=== PATIENT | female | born 1945 | race Caucasian/White ===

== ENCOUNTER 2019-12-11 15:18 | Inpatient (IN) | payer MEDICARE ==
[2019-12-11] MEDS ORDERED: Cyclobenzaprine 10 MG TAB PO PRN (17:26)
[2019-12-11] MEDS: Ascorbic Acid 500 mg Chewable Tablet PO SCH (20:37)
[2019-12-11] MEDS: Famotidine 20 MG TAB PO SCH (20:37)
[2019-12-11] MEDS: Carvedilol 3.125 MG TAB PO SCH (20:37)
[2019-12-11] MEDS: Acetaminophen 500 MG TAB PO SCH (20:37)
[2019-12-11] MEDS: traMADol HCl 50 MG TAB PO PRN (20:39)
[2019-12-12] MEDS: Acetaminophen 500 MG TAB PO SCH ×4 (04:16→21:48)
[2019-12-12] MEDS: Levothyroxine Sodium 25 MCG TAB PO SCH (05:20)
[2019-12-12 05:44] LABS: #Basophils 0.1 thou/uL (0.0-0.2); #Eosinphils 0.2 thou/uL (0.0-0.7); #Lymphocytes 1.2 thou/uL (1.20-3.40); #Monocytes 0.6 thou/uL (0.11-0.59); %Basophils 1.1 % (0.0-1.0); %Eosinophils 3.4 % (0.0-10.0); %Lymphocytes 19.9 % (21.0-51.0); %Monocytes 9.7 % (0.0-10.0); %Neutrophils 65.9 % (42.0-75.0); Hemoglobin 6.5 g/dL (12.0-16.0); Mean Corpuscular HGB CONC 33.9 g/dL (32.0-36.0); Mean Corpuscular Hemoglobin 33.8 pg (27.0-31.0); Mean Corpuscular Volume 99.9 fL (78.0-98.0); Mean Platelet Volume 6.9 fL (7.4-10.4); Platelet Count 217 thou/uL (130-400); Red Blood Cell (RBC) Count 1.92 mill/uL (4.20-5.40); White Blood Cell (WBC) Count 6.1 thou/uL (4.8-10.8)
[2019-12-12 06:05] LABS: ALT (SGPT) 55 U/L (8-55); AST (SGOT) 66 U/L (5-34); Albumin 2.9 g/dL (3.4-4.8); Alkaline Phosphatase 46 U/L (40-110); Anion Gap 13 mmol/L (10-20); BUN (Urea Nitrogen) 12 mg/dL (9.8-20.1); Bilirubin, Total 0.8 mg/dL (0.2-1.2); Calc. Creatinine Clearance 67 mL/min (70-130); Calcium 7.9 mg/dL (7.8-10.44); Carbon Dioxide 25 mmol/L (23-31); Cardiac Risk 2.7 (Less than 4.5); Chloride 107 mmol/L (98-107); Cholesterol 109 mg/dl (< 200 Desired); Estimated GFR-MDRD 77; Globulin 2.1 g/dL (2.4-3.5); Glucose 99 mg/dL (83-110); HDL Cholesterol 40 mg/dL (>60 Neg Risk); LDL Cholesterol, Calculated 50 mg/dL; Potassium 3.1 mmol/L (3.5-5.1); Sodium 142 mmol/L (136-145); Triglycerides 93 mg/dL (Less than 150)
--- NOTE | 2019-12-12 07:02 | HP ---
Admitted to [facility] on 12/11/2019. CHIEF COMPLAINT: Weakness following a fall and hip fracture and repair. HISTORY OF PRESENT ILLNESS: The patient is a 74-year-old white female, who has a history of coronary artery disease, for which she has had a stent and has been asymptomatic; hypertension; and hypothyroidism. The patient is independent of all her ADLs. The patient and her are both retired and were in the [facility] helping her [id number] with some remodeling. They had been there for a while and she was walking across an area that she had been across many times and she said she just fell, not sure exactly what happened. She did not lose consciousness. As a result of the fall, she had a comminuted, displaced intertrochanteric and subtrochanteric fracture of the right femur. She was hospitalized at [facility] from 12/04/2019 until 12/11/2019. On 12/05/2019, she underwent repair of the right hip with placement of a long intramedullary braden with trochanteric nail and cross-locking screws distal, Dr. Matias Cai, orthopedic surgeon. Her postop course has been unremarkable with the exception she said she has had some drops in her blood pressure when she would first stand. This has gotten better. She has also been anemic as a result of the blood loss from the fracture and the surgery. She is gradually improving and she is getting up and transferring with assistance and walking gradually a little further every day with the use of a walker. She [place] [facility] [place] [facility] [place] with her and has been independent of all her ADLs prior to this fall. She was transferred to [facility] for continued physical therapy in an effort to improve her general functional capability with the goals to return to her home. The patient was seen soon after her admission to [facility] and she was able to relate to me this above history. She said right now she is doing good. Still has some soreness in that right hip. She said she is walking further ever day. The transfers are still difficult. She had some diarrhea, but that is better. PAST MEDICAL HISTORY: Coronary artery disease. The patient said she has had several heart attacks. She had a stent placed x1 in 2016 and since then has done very well and has been asymptomatic. She has hypertension, hypercholesterolemia , hypothyroidism. She had a colonoscopy that was normal in 2019. She is a 2, para 2. Osteoporosis. PRESENT MEDICINES: Amlodipine 2.5 mg daily, Tylenol 500 mg two every 6 hours, atorvastatin 10 mg daily, aspirin 81 mg daily, ascorbic acid 500 mg b.i.d., cyclobenzaprine 5 mg t.i.d. p.r.n. leg spasms, Plavix 75 mg daily, carvedilol 3.125 mg b.i.d., levothyroxine 25 mcg daily, ibuprofen 400 mg every 8 hours, tramadol 50 mg one every 6 hours p.r.n. ALLERGIES: NO KNOWN ALLERGIES. REVIEW OF SYSTEMS: GENERAL: The patient has not had any recent weight gain or loss. She said she has had no fever. EYES, EARS, NOSE, AND THROAT: No complaints. PULMONARY: No complaints. CARDIOVASCULAR: No complaints. GASTROINTESTINAL: The patient said initially after surgery, she had a little nausea, particularly when her pressure was a little low and said this has gone away. She did have some diarrhea, but none today. GENITOURINARY: No complaints. ADLs: Prior to her fall, she was independent of her ADLs and instrumental ADLs. HABITS: Tobacco, none. Alcohol, patient does drink wine. SOCIAL HISTORY: The patient is and lives with her . CODE STATUS: Full code. PHYSICAL EXAMINATION: GENERAL: Shows a very pleasant 74-year-old white female, who is alert and talkative and appears comfortable and in no distress. VITAL SIGNS: Her temp is 98.8, pulse 78, respirations 20, O2 saturation 98% on room air, blood pressure 135/79. Her weight is 139. Height 5 feet 7 inches. HEENT: Head, normocephalic and atraumatic. Ears, TMs are clear. Eyes, pupils are equal, round, and reactive. Sclerae nonicteric. Extraocular musculature is intact. Nose normal. Mouth and throat normal. NECK: Carotids are equal and strong. No bruits. Thyroid not enlarged. LUNGS: Clear. HEART: Regular rate. No murmurs. ABDOMEN: Soft with no organomegaly. No areas of tenderness. EXTREMITIES: Lower extremities, no edema over the lateral aspect of the proximal right hip. The incisions are covered and have been stapled. There is no drainage. Distally on the lateral aspect of the femur, there is also another small incision that has shannon, is doing well with no drainage. NEUROLOGIC: The patient is alert, oriented x3 and to her situation. The patient has some weakness in that right leg from the fracture and surgery. Otherwise, no focal weakness. IMPRESSION: 1. Generalized weakness and deconditioning. a. Secondary to a fall on 12/04/2019 with resultant fracture of the right hip requiring surgical repair. b. Improving, walking further and transferring a little better as of 2019. 2. Fracture of the right hip and femur, displaced, comminuted, intertrochanteric and subtrochanteric fracture. a. Secondary to mechanical fall on 12/03. b. Status post open reduction and internal fixation with long intramedullary braden, intertrochanteric nail and cross locking distal screw by Dr. Matias Cai, orthopedic surgeon, on 12/04. 3. Coronary artery disease. a. History of several myocardial infarctions. b. Status post stent x1 in 2015. c. Presently asymptomatic. 4. Hypertension. 5. Hypothyroidism. 6. Osteoporosis. 7. Hypercholesterolemia. PLAN: The patient has been admitted to [facility] for continued physical therapy in an effort to improve her general functional capability. We will continue her present medicines. See orders. CODE STATUS: Full code. Job ID: [id number] [facility]TDD
[2019-12-12] MEDS: Amlodipine 5 MG TAB PO SCH (09:25)
[2019-12-12] MEDS: Aspirin 81 mg Enteric Coated Tablet PO SCH (09:25)
[2019-12-12] MEDS: Carvedilol 3.125 MG TAB PO SCH ×2 (09:26→21:48)
[2019-12-12] MEDS: Potassium Chloride 10 MEQ TAB PO SCH ×2 (09:26→21:48)
[2019-12-12] MEDS: Clopidogrel Bisulfate 75 MG TAB PO SCH (09:26)
[2019-12-12] MEDS: Ascorbic Acid 500 mg Chewable Tablet PO SCH ×2 (09:26→21:48)
[2019-12-12] MEDS: Famotidine 20 MG TAB PO SCH ×2 (09:27→21:48)
[2019-12-12] MEDS: Atorvastatin Calcium 10 MG TAB PO SCH (09:27)
[2019-12-12] MEDS: traMADol HCl 50 MG TAB PO PRN ×2 (15:45→21:47)
[2019-12-12 17:25] LABS: Hemoglobin 8.1 g/dL (12.0-16.0)
[2019-12-13] MEDS: Acetaminophen 500 MG TAB PO SCH ×3 (05:19→20:20)
[2019-12-13] MEDS: Levothyroxine Sodium 25 MCG TAB PO SCH (05:19)
[2019-12-13] MEDS: traMADol HCl 50 MG TAB PO PRN ×2 (06:05→20:17)
--- NOTE | 2019-12-13 07:40 | PRG ---
DATE OF SERVICE: 12/12/2019 SUBJECTIVE: The patient says she is rested well. Her pain seemed to be in good control. Yesterday, she was up walking some with her walker and with physical therapist. OBJECTIVE: GENERAL: The patient is sitting up in bed. She is pale, but not in any acute distress. VITAL SIGNS: Show a temperature of 97.9, pulse 94, respirations 16, O2 saturation 97% on room air, blood pressure 133/68. LUNGS: Clear. HEART: Regular rate. EXTREMITIES: Feel no edema on the lower legs. Incisions are healing well. There is a tiny amount of serous drainage on the dressing of the incision at the lateral hip. There is bruising around the inferior aspect of the right leg. LABORATORY DATA: Shows H and H of 6.5 and 19.1, white cell count 6100 with 66% segs, 20% lymphocytes, and a platelet count of 217,000. Sodium 142, potassium 3.1, BUN 12, creatinine 0.74, GFR 77, AST 66, cholesterol 109, triglycerides 93, LDL 50, HDL 40. TSH 2.7. ASSESSMENT: 1. Generalized weakness and deconditioning. a. Secondary to a fall on 12/04/2019, with resultant fracture of the right hip and requiring surgical repair. b. Improving. Walking further and transferring a little easier as of 2019. 2. Fracture of the right hip and femur, displaced, comminuted, intertrochanteric and subtrochanteric fracture. a. Secondary to a mechanical fall on 12/03. b. Status post open reduction and internal fixation with a long intramedullary braden and intertrochanteric nail and cross-locking distal screw by Dr. Matias Cai, orthopedic surgeon, on 12/04. 3. Coronary artery disease. a. History of several myocardial infarctions. b. Status post stent times x1 in 2016. c. Presently asymptomatic. 4. Hypertension. 5. Hypothyroidism. 6. Osteoporosis. 7. Hypercholesterolemia, controlled. 8. Anemia. a. Secondary from blood loss from the fractured hip. b. Hemoglobin down to 6.5 as of 12/12/2019. PLAN: Continue PT, OT. We will transfuse 1 unit of blood. We will start on potassium supplementation. Job ID: [id number] [facility]
[2019-12-13] MEDS ORDERED: Emollient 15 oz bottle 450 ML, Triamcinolone Acetonide 200 MG TOP PRN (08:26)
--- NOTE | 2019-12-13 09:26 | PRG ---
DATE OF SERVICE: 12/13/2019 SUBJECTIVE: The patient says she is feeling better. She has had no shortness of breath or any chest pain. She said she has had a little itching intermittently on her back. She received 1 unit of blood yesterday without problem. She has been up and dressed with the help of occupational therapy. OBJECTIVE: GENERAL: The patient is alert, appears comfortable, and in no distress. VITAL SIGNS: Her temperature is 98.7, pulse 71, respirations 18, O2 saturation 97% on room air, and blood pressure 147/71. LUNGS: Clear. HEART: Regular rate. LOWER EXTREMITIES: No edema. She is wearing her knee-high support hose. The patient has bruising on the right upper leg from the fracture. SKIN: There is no rash on the back. LABORATORY DATA: Her 2-hour post transfusion H and H were 8.1 and 23.5. ASSESSMENT: 1. Generalized weakness and deconditioning. a. Secondary to a fall on 12/04/2019 with resultant fracture of the right hip, requiring surgical repair. b. Improving. Walking further and transferring easier as of 12/13/2019. 2. Fracture of the right hip and femur, displaced, comminuted, intertrochanteric and subtrochanteric fracture. a. Secondary to a mechanical fall on 12/03. b. Status post open reduction and internal fixation with a long intramedullary braden and intertrochanteric nail and cross-locking distal screw by Dr. Matias Cai, orthopedic surgeon, on 12/04. 3. Coronary artery disease. a. History of several myocardial infarctions. b. Status post stent x1 in 2016. c. Presently asymptomatic. 4. Hypertension. 5. Hypothyroidism. 6. Osteoporosis. 7. Hypercholesterolemia, controlled. 8. Anemia. a. Secondary to blood loss from the fracture. b. Transfused 1 unit of packed RBCs on 12/12/2019 with post transfusion hemoglobin of 8.1. PLAN: The patient is doing better. Continue present care. Continue PT and OT. May utilize some moisturizer on back as needed for any itching. Job ID: [id number] [facility]
[2019-12-13] MEDS: Famotidine 20 MG TAB PO SCH ×2 (10:01→20:21)
[2019-12-13] MEDS: Amlodipine 5 MG TAB PO SCH (10:02)
[2019-12-13] MEDS: Potassium Chloride 10 MEQ TAB PO SCH ×2 (10:02→17:07)
[2019-12-13] MEDS: Clopidogrel Bisulfate 75 MG TAB PO SCH (10:02)
[2019-12-13] MEDS: Aspirin 81 mg Enteric Coated Tablet PO SCH (10:03)
[2019-12-13] MEDS: Carvedilol 3.125 MG TAB PO SCH ×2 (10:03→20:21)
[2019-12-13] MEDS: Ascorbic Acid 500 mg Chewable Tablet PO SCH ×2 (10:03→20:21)
[2019-12-13] MEDS: Atorvastatin Calcium 10 MG TAB PO SCH (10:03)
[2019-12-14] MEDS: traMADol HCl 50 MG TAB PO PRN ×2 (04:57→20:22)
[2019-12-14] MEDS: Acetaminophen 500 MG TAB PO SCH ×3 (04:57→20:22)
[2019-12-14] MEDS: Levothyroxine Sodium 25 MCG TAB PO SCH (04:59)
[2019-12-14] MEDS: Potassium Chloride 10 MEQ TAB PO SCH ×2 (08:32→17:08)
[2019-12-14] MEDS: Amlodipine 5 MG TAB PO SCH (08:32)
[2019-12-14] MEDS: Famotidine 20 MG TAB PO SCH ×2 (08:32→20:22)
[2019-12-14] MEDS: Atorvastatin Calcium 10 MG TAB PO SCH (08:32)
[2019-12-14] MEDS: Ascorbic Acid 500 mg Chewable Tablet PO SCH ×2 (08:33→20:22)
[2019-12-14] MEDS: Clopidogrel Bisulfate 75 MG TAB PO SCH (08:33)
[2019-12-14] MEDS: Carvedilol 3.125 MG TAB PO SCH ×2 (08:33→20:22)
[2019-12-14] MEDS: Aspirin 81 mg Enteric Coated Tablet PO SCH (08:34)
--- NOTE | 2019-12-14 10:53 | PRG ---
DATE OF SERVICE: 12/14/2019 SUBJECTIVE: The patient says she is feeling good today. She is doing well with therapy. She still is having most of her trouble trying to transfer, but doing better. Her pain in her hip seemed to be well controlled. OBJECTIVE: GENERAL: The patient is sitting up in bed, is alert, appears very comfortable, in no distress. VITAL SIGNS: Her temperature is 98.4, pulse 85, respirations are 16, O2 saturation 98% on room air, blood pressure 133/76. LUNGS: Clear. HEART: Regular rate. EXTREMITIES: Incisions are healing well. [place] are present. ASSESSMENT: 1. Generalized weakness and deconditioning. a. Secondary to a fall on 12/04/2019 with resultant fracture of the right hip requiring surgical repair. b. Improving. Walking further and transferring is getting a little easier as of 12/13. 2. Fracture of the right hip and femur, displaced, comminuted intertrochanteric and subtrochanteric fracture. a. Secondary to a mechanical fall on 12/03. b. Status post open reduction and internal fixation with long intramedullary braden and intertrochanteric nail and cross-locking distal screw by, Dr. Matias Cai, orthopedic surgeon, on 12/04. 3. Coronary artery disease. a. History of several myocardial infarctions. b. Status post stent x1 in 2016. c. Presently asymptomatic. 4. Hypertension. 5. Hypothyroidism. 6. Osteoporosis. 7. Hypercholesterolemia, controlled. 8. Anemia. a. Secondary to blood loss from the fracture and surgical repair. b. Transfused 1 unit of packed RBCs on 12/12/2019 with a posttransfusion hemoglobin of 8.1. PLAN: Continue present care. Continue PT and OT. Job ID: [id number] [facility]
[2019-12-14] MEDS: Ibuprofen 200 MG TAB PO PRN (11:37)
[2019-12-15] MEDS: traMADol HCl 50 MG TAB PO PRN ×3 (04:51→20:38)
[2019-12-15] MEDS: Levothyroxine Sodium 25 MCG TAB PO SCH (04:52)
[2019-12-15] MEDS: Acetaminophen 500 MG TAB PO SCH ×3 (04:53→20:38)
[2019-12-15] MEDS: Potassium Chloride 10 MEQ TAB PO SCH ×2 (08:30→17:04)
[2019-12-15] MEDS: Clopidogrel Bisulfate 75 MG TAB PO SCH (08:30)
[2019-12-15] MEDS: Famotidine 20 MG TAB PO SCH ×2 (08:30→20:38)
[2019-12-15] MEDS: Carvedilol 3.125 MG TAB PO SCH ×2 (08:30→20:38)
[2019-12-15] MEDS: Aspirin 81 mg Enteric Coated Tablet PO SCH (08:30)
[2019-12-15] MEDS: Amlodipine 5 MG TAB PO SCH (08:30)
[2019-12-15] MEDS: Atorvastatin Calcium 10 MG TAB PO SCH (08:30)
[2019-12-15] MEDS: Ascorbic Acid 500 mg Chewable Tablet PO SCH ×2 (08:31→20:38)
--- NOTE | 2019-12-15 12:44 | PRG ---
DATE OF SERVICE: 12/15/2019 SUBJECTIVE: The patient says she is feeling better. Still has soreness in that right hip. She is doing good on her walking, but has trouble still getting up out of bed or chair. Overall, though, she thinks she is improving. OBJECTIVE: GENERAL: The patient is sitting up in bed, is alert, talkative, looks very comfortable and in no distress. VITAL SIGNS: Her temperature 99.6, pulse 81, respirations 16, O2 saturation 98 % on room air, blood pressure 131/50. LUNGS: Clear. HEART: Regular rate. EXTREMITIES: Right leg, the calf is a little bigger than the left, but there is no calf tenderness. Her incisions are healing well. The shannon are still present. There is still bruising on the leg, but each day this is lightening up. ASSESSMENT: 1. Generalized weakness and deconditioning. a. Secondary to a fall on 12/04/2019 with resultant fracture of the right hip requiring surgical repair. b. Improving. Walking further and transferring better, but still requiring assistance as of 12/14. 2. Fracture of the right hip and femur, displaced, comminuted intertrochanteric and subtrochanteric fracture. a. Secondary to a mechanical fall on 12/03. b. Status post open reduction and internal fixation with long intramedullary braden and intertrochanteric nail and cross locking distal screw by Dr. Matias Cai, Orthopedic Surgeon on 12/04. 3. Coronary artery disease. a. History of several myocardial infarctions. b. Status post stent x1 in 2016. c. Presently asymptomatic. 4. Hypertension, controlled. 5. Hypothyroidism. 6. Osteoporosis. 7. Hypercholesterolemia, controlled. 8. Anemia. a. Secondary to blood loss from the fracture and surgical repair. b. Transfused 1 unit of packed RBCs on 12/12/2019 with posttransfusion hemoglobin of 8.1. PLAN: Continue present care. Continue PT and OT. Job ID: [id number] [facility]
[2019-12-16] MEDS: Acetaminophen 500 MG TAB PO SCH ×3 (05:05→21:01)
[2019-12-16] MEDS: traMADol HCl 50 MG TAB PO PRN ×3 (05:07→20:59)
[2019-12-16] MEDS: Levothyroxine Sodium 25 MCG TAB PO SCH (05:10)
[2019-12-16] MEDS: Amlodipine 5 MG TAB PO SCH (08:25)
[2019-12-16] MEDS: Potassium Chloride 10 MEQ TAB PO SCH ×2 (08:25→17:20)
[2019-12-16] MEDS: Carvedilol 3.125 MG TAB PO SCH ×2 (08:27→21:01)
[2019-12-16] MEDS: Atorvastatin Calcium 10 MG TAB PO SCH (08:27)
[2019-12-16] MEDS: Aspirin 81 mg Enteric Coated Tablet PO SCH (08:27)
[2019-12-16] MEDS: Famotidine 20 MG TAB PO SCH ×2 (08:27→21:01)
[2019-12-16] MEDS: Ascorbic Acid 500 mg Chewable Tablet PO SCH ×2 (08:27→21:01)
[2019-12-16] MEDS: Clopidogrel Bisulfate 75 MG TAB PO SCH (08:27)
[2019-12-16] MEDS: Ibuprofen 200 MG TAB PO PRN (08:27)
--- NOTE | 2019-12-16 10:45 | PRG ---
DATE OF SERVICE: 12/16/2019 SUBJECTIVE: The patient says she is doing good today. Yesterday, she sat up in a bedside chair for longer period and she was little more sore than usual, felt good to be back in bed. She is making progress with the therapy, still most difficult thing is getting up and down, out of bed, and out of the chair. OBJECTIVE: GENERAL: The patient is sitting up in bed. She is alert, talkative , appears comfortable, in no distress. VITAL SIGNS: Her temp is 98.5, pulse 82, respirations 18, O2 saturation 98% on room air, and blood pressure 133/84. LUNGS: Clear. HEART: Regular rate. EXTREMITIES: The three incisions along the lateral aspect of the right femur and hip are all covered and the dressings are dry. There is no surrounding redness or drainage. The bruising continues to diminish. ASSESSMENT: 1. Generalized weakness and deconditioning. a. Secondary to a fall on 12/04/2019, with resultant fracture of the right hip requiring surgical repair. b. Improving. Walking further and transferring better, but still requiring assistance as of 12/15. 2. Fracture of the right hip and femur, displaced comminuted intertrochanteric and subtrochanteric fracture. a. Secondary to a mechanical fall on 12/03. b. Status post open reduction and internal fixation with a long intramedullary braden and intertrochanteric nail and cross-locking distal screw by Matias Cai, orthopedic surgeon on 12/04. c. Doing very well as of 12/15. 3. Coronary artery disease. a. History of several myocardial infarcts. b. Status post stent x1 in 2016. c. Presently asymptomatic. 4. Hypertension, controlled. 5. Hypothyroidism. 6. Osteoporosis. 7. Hypercholesterolemia, controlled. 8. Anemia. a. Secondary to blood loss from the fracture and surgical repair. b. Transfused 1 unit of packed RBCs on 12/12/2019, with post transfusion hemoglobin of 8.1. PLAN: Continue present care. Recheck CBC in the morning and also the potassium. Job ID: [id number] [facility]TDD
[2019-12-17] MEDS: Levothyroxine Sodium 25 MCG TAB PO SCH (05:26)
[2019-12-17] MEDS: Acetaminophen 500 MG TAB PO SCH ×3 (05:26→21:00)
[2019-12-17 05:46] LABS: #Basophils 0.1 thou/uL (0.0-0.2); #Eosinphils 0.2 thou/uL (0.0-0.7); #Lymphocytes 1.5 thou/uL (1.20-3.40); #Monocytes 0.5 thou/uL (0.11-0.59); %Basophils 1.1 % (0.0-1.0); %Eosinophils 3.7 % (0.0-10.0); %Lymphocytes 23.8 % (21.0-51.0); %Monocytes 8.1 % (0.0-10.0); %Neutrophils 63.2 % (42.0-75.0); Hemoglobin 9.3 g/dL (12.0-16.0); Mean Corpuscular HGB CONC 31.4 g/dL (32.0-36.0); Mean Corpuscular Hemoglobin 32.6 pg (27.0-31.0); Mean Corpuscular Volume 103.7 fL (78.0-98.0); Mean Platelet Volume 6.1 fL (7.4-10.4); Platelet Count 336 thou/uL (130-400); RBC Distribution Width 18.5 % (11.5-14.5); Red Blood Cell (RBC) Count 2.84 mill/uL (4.20-5.40); White Blood Cell (WBC) Count 6.3 thou/uL (4.8-10.8)
[2019-12-17 05:57] LABS: Anion Gap 13 mmol/L (10-20); BUN (Urea Nitrogen) 15 mg/dL (9.8-20.1); Calc. Creatinine Clearance 66 mL/min (70-130); Calcium 8.5 mg/dL (7.8-10.44); Carbon Dioxide 25 mmol/L (23-31); Chloride 109 mmol/L (98-107); Estimated GFR-MDRD 76; Glucose 101 mg/dL (83-110); Sodium 143 mmol/L (136-145)
[2019-12-17] MEDS: Clopidogrel Bisulfate 75 MG TAB PO SCH (07:59)
[2019-12-17] MEDS: Aspirin 81 mg Enteric Coated Tablet PO SCH (07:59)
[2019-12-17] MEDS: Potassium Chloride 10 MEQ TAB PO SCH (07:59)
[2019-12-17] MEDS: Atorvastatin Calcium 10 MG TAB PO SCH (07:59)
[2019-12-17] MEDS: traMADol HCl 50 MG TAB PO PRN ×3 (07:59→21:00)
[2019-12-17] MEDS: Famotidine 20 MG TAB PO SCH ×2 (07:59→21:00)
[2019-12-17] MEDS: Carvedilol 3.125 MG TAB PO SCH ×2 (08:00→21:00)
[2019-12-17] MEDS: Amlodipine 5 MG TAB PO SCH (08:00)
[2019-12-17] MEDS: Ascorbic Acid 500 mg Chewable Tablet PO SCH ×2 (08:01→21:00)
--- NOTE | 2019-12-17 12:28 | PRG ---
DATE OF SERVICE: 12/17/2019 SUBJECTIVE: The patient said she is a little sore over hip from the therapy. She has been doing, but overall making progress. OBJECTIVE: GENERAL: The patient is sitting up in a chair, alert, appears comfortable, in no distress. VITAL SIGNS: Her temperature is 98.6, pulse 79, respirations 16, O2 saturation 97% on room air, blood pressure 135/74. LUNGS: Clear. HEART: Regular rate. MUSCULOSKELETAL: Incisions are healing. The most proximal incision is just a little red. Nurse has taken out shannon and will steri-strip these areas. LABORATORY DATA: Shows H and H of 9.3 and 29.5, white cell count 6300 with 63% segs, 24% lymphocytes, and a platelet count of 336,000. Sodium 143, potassium 4 , BUN 15, creatinine 0.75, glucose 101. ASSESSMENT: 1. Generalized weakness and deconditioning. a. Secondary to a fall on 12/04/2019 with resultant fracture of the right hip requiring surgical repair. b. Improving. Walking further and transferring better, but still requiring some assistance as of 12/16. 2. Fracture of the right hip and femur, displaced comminuted intertrochanteric and subtrochanteric fracture. a. Secondary to mechanical fall on 12/03. b. Status post open reduction and internal fixation with a long intramedullary braden and intertrochanteric nailing across locking distal screw by Matias Cai, orthopedic surgeon, on 12/04. c. Doing well as of 12/16 with shannon removed. 3. Coronary artery disease. a. History of several myocardial infarcts. b. Status post stent x1 in 2016. c. Asymptomatic. 4. Hypertension, controlled. 5. Hypothyroidism. 6. Osteoporosis. 7. Hypercholesterolemia, controlled. 8. Anemia. a. Secondary to blood loss from fracture and surgical repair. b. Transfused 1 unit of packed RBCs on 12/11, with posttransfusion hemoglobin of 8.1. c. Hemoglobin up to 9.3 as of 12/16. PLAN: Continue present care. Continue PT. [place] removed and wound Steri-Stripped. Her hypokalemia has resolved. We will discontinue her potassium. Job ID: [id number] [facility]
[2019-12-18] MEDS: Acetaminophen 500 MG TAB PO SCH ×3 (05:10→21:36)
[2019-12-18] MEDS: Ibuprofen 200 MG TAB PO PRN (05:10)
[2019-12-18] MEDS: Levothyroxine Sodium 25 MCG TAB PO SCH (05:11)
--- NOTE | 2019-12-18 08:55 | PRG ---
DATE OF SERVICE: 12/18/2019 SUBJECTIVE: The patient said she is doing good. She had her shannon removed from her incisions yesterday. OBJECTIVE: GENERAL: The patient is alert, appears in no acute distress. VITAL SIGNS: Her temperature is 98.6, pulse 89, respirations 18, O2 saturation 97% on room air, blood pressure 150/77. LUNGS: Clear. HEART: Regular rate. EXTREMITIES: Incisions are all healing. [place] are out. Area is Steri- Stripped. The most proximal incision has a little pinkness around the incision, but no more than what it was yesterday and that since shannon are out, feel like this local irritation will all resolve. If not, we will place on antibiotics. ASSESSMENT: 1. Generalized weakness and deconditioning. a. Secondary to a fall on 12/04/2019 that resulted in a fracture of the right hip requiring surgical repair. b. Improving. Walking further and transferring better, but still requiring assistance as of 12/17. 2. Fracture of the right hip and femur, displaced comminuted intertrochanteric and subtrochanteric fracture. a. Secondary to mechanical fall on 12/03. b. Status post open reduction and internal fixation with a long intramedullary braden and intertrochanteric nailing and locking distal screw by Matias Cai , orthopedic surgeon, on 12/04. c. Doing well as of 12/17. 3. Coronary artery disease. a. History of several myocardial infarctions. b. Status post stent x1 in 2015. c. Asymptomatic. 4. Hypertension. 5. Hypothyroidism. 6. Osteoporosis. 7. Hypercholesterolemia. 8. Anemia. a. Secondary to blood loss from fracture and surgical repair. b. Transfused 1 unit of packed RBCs on 12/03 with post transfusion hemoglobin of 8.1. c. Hemoglobin up to 9.3 on 12/16. PLAN: Continue present care. Continue PT and OT. Job ID: [id number] [facility]
[2019-12-18] MEDS: Famotidine 20 MG TAB PO SCH ×2 (09:33→21:36)
[2019-12-18] MEDS: Atorvastatin Calcium 10 MG TAB PO SCH (09:33)
[2019-12-18] MEDS: Amlodipine 5 MG TAB PO SCH (09:34)
[2019-12-18] MEDS: Aspirin 81 mg Enteric Coated Tablet PO SCH (09:34)
[2019-12-18] MEDS: Ascorbic Acid 500 mg Chewable Tablet PO SCH ×2 (09:34→21:36)
[2019-12-18] MEDS: Carvedilol 3.125 MG TAB PO SCH ×2 (09:34→21:36)
[2019-12-18] MEDS: Clopidogrel Bisulfate 75 MG TAB PO SCH (09:35)
[2019-12-18] MEDS: traMADol HCl 50 MG TAB PO PRN ×2 (09:40→21:36)
[2019-12-19] MEDS: Acetaminophen 500 MG TAB PO SCH ×3 (05:45→20:53)
[2019-12-19] MEDS: Levothyroxine Sodium 25 MCG TAB PO SCH (05:46)
[2019-12-19] MEDS: traMADol HCl 50 MG TAB PO PRN ×3 (08:00→20:52)
[2019-12-19] MEDS: Carvedilol 3.125 MG TAB PO SCH ×2 (08:01→20:52)
[2019-12-19] MEDS: Atorvastatin Calcium 10 MG TAB PO SCH (08:01)
[2019-12-19] MEDS: Clopidogrel Bisulfate 75 MG TAB PO SCH (08:01)
[2019-12-19] MEDS: Amlodipine 5 MG TAB PO SCH (08:01)
[2019-12-19] MEDS: Aspirin 81 mg Enteric Coated Tablet PO SCH (08:01)
[2019-12-19] MEDS: Ascorbic Acid 500 mg Chewable Tablet PO SCH ×2 (08:01→20:52)
[2019-12-19] MEDS: Famotidine 20 MG TAB PO SCH ×2 (08:01→20:52)
[2019-12-20] MEDS: Acetaminophen 500 MG TAB PO SCH ×3 (05:38→21:29)
[2019-12-20] MEDS: Ibuprofen 200 MG TAB PO PRN (05:39)
[2019-12-20] MEDS: Levothyroxine Sodium 25 MCG TAB PO SCH (05:39)
[2019-12-20] MEDS: Ascorbic Acid 500 mg Chewable Tablet PO SCH ×2 (07:53→21:29)
[2019-12-20] MEDS: traMADol HCl 50 MG TAB PO PRN ×3 (07:53→21:30)
[2019-12-20] MEDS: Famotidine 20 MG TAB PO SCH ×2 (07:53→21:30)
[2019-12-20] MEDS: Atorvastatin Calcium 10 MG TAB PO SCH (07:53)
[2019-12-20] MEDS: Clopidogrel Bisulfate 75 MG TAB PO SCH (07:54)
[2019-12-20] MEDS: Amlodipine 5 MG TAB PO SCH (07:54)
[2019-12-20] MEDS: Carvedilol 3.125 MG TAB PO SCH ×2 (07:55→21:30)
[2019-12-20] MEDS: Aspirin 81 mg Enteric Coated Tablet PO SCH (07:55)
[2019-12-20] MEDS ORDERED: Polyethylene Glycol 3350 17 GM Packet PO PRN (08:36)
--- NOTE | 2019-12-20 09:27 | PRG ---
DATE OF SERVICE: 12/19/2019 SUBJECTIVE: The patient says she is doing good. She just does not feel quite as good today, a little more tired. OBJECTIVE: GENERAL: The patient is sitting up in a chair. She is alert, appears comfortable, in no distress. VITAL SIGNS: Temperature 98.5, pulse 74, respirations 16, O2 saturation 99% on room air, blood pressure 131/74. LUNGS: Clear. HEART: Regular rate. EXTREMITIES: Lower extremities, no edema. The incisions were all healing. They have Steri-Strips present. The more proximal one has just a little pinkness around the wound, probably from the shannon that have been removed. This though looks better. ASSESSMENT: 1. Generalized weakness and deconditioning;. a. Secondary to a fall on 12/04/2019, that resulted in a fracture of the right hip requiring surgical repair. b. Improving. 2. Fracture of the right hip and femur, displaced comminuted intertrochanteric and subtrochanteric fracture. a. Secondary to mechanical fall on 12/03. b. Status post open reduction and internal fixation with a long intramedullary braden and intertrochanteric nail and locking distal screw by Dr. Matias Cai , orthopedic surgeon on 12/04. c. Doing well as of 12/18. 3. Coronary artery disease. a. History of several myocardial infarctions. b. Status post stent x1 in 2015. c. Asymptomatic. 4. Hypertension. 5. Hypothyroidism. 6. Osteoporosis. 7. Hypercholesterolemia. 8. Anemia. a. Secondary to blood loss from fracture and surgical repair. b. Transfused 1 unit of packed RBCs on 12/03 with post-transfusion hemoglobin of 8.1. c. Hemoglobin up to 9.3 on 12/16. PLAN: Continue present care. Continue PT and OT. Job ID: [id number] [facility]
--- NOTE | 2019-12-20 10:32 | PRG ---
DATE OF SERVICE: 12/20/2019 SUBJECTIVE: The patient says she is doing good. She has asked for something to help with her bowels. OBJECTIVE: GENERAL: The patient is alert, appears in no acute distress. VITAL SIGNS: Show a temperature of 98.5, pulse 73, respirations 16, O2 saturation 99% on room air, and blood pressure 145/68. LUNGS: Clear. HEART: Regular rate. EXTREMITIES: Lower extremities, no edema. The incisions along the lateral aspect of the right hip are all healing. The pinkness on the more proximal incision is all fading. ASSESSMENT: 1. Generalized weakness and deconditioning. a. Secondary to a fall on 12/04/2019, that resulted in a fracture of the right hip requiring surgical repair. b. Improving as of 12/19. 2. Fracture of the right hip and femur, displaced comminuted intertrochanteric and subtrochanteric fracture. a. Secondary to mechanical fall on 12/03. b. Status post open reduction and internal fixation with a long intramedullary braden and intertrochanteric nail and locking distal screw by Dr. Matias Cai , orthopedic surgeon, on 12/04. c. Doing well as of 11/26. 3. Coronary artery disease. a. History of several myocardial infarctions. b. Status post stent x1 in 2016. c. Asymptomatic. 4. Hypertension. 5. Hypothyroidism. 6. Osteoporosis. 7. Hypercholesterolemia. 8. Anemia. a. Secondary to blood loss from the fracture and surgical repair. b. Transfused 1 unit of packed RBCs on 12/03 with posttransfusion hemoglobin of 8.1. c. Hemoglobin up to 9.3 on 12/16. PLAN: Continue present care. Continue PT and OT. I will order MiraLAX for constipation as needed. Visited with the patient and her and we will target Saturday 12/23 for potential discharge. We will see how therapy goes this week. Job ID: [id number] [facility]
[2019-12-21] MEDS: Levothyroxine Sodium 25 MCG TAB PO SCH (05:54)
[2019-12-21] MEDS: Ibuprofen 200 MG TAB PO PRN (05:54)
[2019-12-21] MEDS: Acetaminophen 500 MG TAB PO SCH ×3 (05:54→21:08)
[2019-12-21] MEDS: traMADol HCl 50 MG TAB PO PRN ×2 (08:38→21:09)
[2019-12-21] MEDS: Aspirin 81 mg Enteric Coated Tablet PO SCH (08:40)
[2019-12-21] MEDS: Amlodipine 5 MG TAB PO SCH (08:40)
[2019-12-21] MEDS: Carvedilol 3.125 MG TAB PO SCH ×2 (08:41→21:09)
[2019-12-21] MEDS: Famotidine 20 MG TAB PO SCH ×2 (08:41→21:08)
[2019-12-21] MEDS: Clopidogrel Bisulfate 75 MG TAB PO SCH (08:41)
[2019-12-21] MEDS: Atorvastatin Calcium 10 MG TAB PO SCH (08:41)
[2019-12-21] MEDS: Ascorbic Acid 500 mg Chewable Tablet PO SCH ×2 (08:41→21:08)
--- NOTE | 2019-12-21 09:41 | PRG ---
DATE OF SERVICE: 12/21/2019 SUBJECTIVE: The patient says she is doing very well, still a little sore. She did work with Physical Therapy a lot yesterday. OBJECTIVE: GENERAL: The patient is sitting up in a chair. She is alert, appears in no distress. VITAL SIGNS: Her vital signs show a temperature of 98.2, pulse 68, respirations 16, O2 saturation 97% on room air, and blood pressure 162/77. LUNGS: Clear. HEART: Regular rate. EXTREMITIES: No edema. Incisions are all healing. The little pinkness around the more proximal incision is all fading. At physical therapy yesterday, she walked up to 275 feet and over 175 feet several times with a rolling walker and only standby assistance. She is transferring only with supervision now. ASSESSMENT: 1. Generalized weakness and deconditioning. a. Secondary to a fall on 12/04/2019, that resulted in a fracture of the right hip, requiring surgical repair. b. Improving, walking up to 275 feet, walking up to 175 feet multiple times a day with a rolling walker, transferring with supervision only as of 12/20. 2. Fracture of the right hip and femur, displaced comminuted intertrochanteric and subtrochanteric fracture. a. Secondary to a mechanical fall on 12/03. b. Status post open reduction and internal fixation with a long intramedullary braden and intertrochanteric nail and locking distal screw by Matias Cai MD, orthopedic surgeon on 12/04. c. Doing well as of 11/26. 3. Coronary artery disease. a. History of several myocardial infarctions. b. Status post stent x1 in 2015. c. Asymptomatic. 4. Hypertension. 5. Hypothyroidism. 6. Osteoporosis. 7. Hypercholesterolemia. 8. Anemia. a. Secondary to blood loss from the fracture and surgical repair. b. Transfused 1 unit of packed RBCs on 12/03 with posttransfusion hemoglobin of 8.1. c. Hemoglobin up to 9.3 on 12/16. PLAN: The patient is making excellent progress. Continue PT and OT. Tentatively plan on discharge on Friday, 12/23. Job ID: [id number] MTDD
[2019-12-22] MEDS: Ibuprofen 200 MG TAB PO PRN (05:33)
[2019-12-22] MEDS: Acetaminophen 500 MG TAB PO SCH ×3 (05:33→20:59)
[2019-12-22] MEDS: Levothyroxine Sodium 25 MCG TAB PO SCH (05:33)
[2019-12-22] MEDS: Aspirin 81 mg Enteric Coated Tablet PO SCH (07:48)
[2019-12-22] MEDS: Atorvastatin Calcium 10 MG TAB PO SCH (07:48)
[2019-12-22] MEDS: Ascorbic Acid 500 mg Chewable Tablet PO SCH ×2 (07:48→20:57)
[2019-12-22] MEDS: traMADol HCl 50 MG TAB PO PRN ×2 (07:49→20:57)
[2019-12-22] MEDS: Carvedilol 3.125 MG TAB PO SCH ×2 (07:49→20:58)
[2019-12-22] MEDS: Clopidogrel Bisulfate 75 MG TAB PO SCH (07:49)
[2019-12-22] MEDS: Amlodipine 5 MG TAB PO SCH (07:50)
[2019-12-22] MEDS: Famotidine 20 MG TAB PO SCH ×2 (07:50→20:58)
--- NOTE | 2019-12-22 14:00 | PRG ---
DATE OF SERVICE: 12/22/2019 SUBJECTIVE: The patient said she is doing very well. She is feeling better. She said she is getting stronger and doing better with her walking. OBJECTIVE: GENERAL: The patient is sitting up in a chair. She is alert, talkative, appears comfortable, in no distress. VITAL SIGNS: Temperature 97.4, pulse 69, respirations 16, O2 saturation 97% on room air, blood pressure 166/76. LUNGS: Clear. HEART: Regular rate. EXTREMITIES: No edema. The incisions along the lateral aspect of the right upper leg are all healing. There is no drainage or surrounding redness. ASSESSMENT: 1. Generalized weakness and deconditioning. a. Secondary to a fall on 12/03, that resulted in a fracture of the right hip requiring surgical repair. b. Improving. Walking up to 275 feet and 175 feet multiple times a day with a rolling walker. Transferring only with supervision as of 12/21. 2. Fracture of the right hip and femur, displaced comminuted intertrochanteric and subtrochanteric fracture. a. Secondary to a mechanical fall on 12/03. b. Status post open reduction and internal fixation with a long intramedullary braden and intertrochanteric nail and locking distal screw by Dr. Matias Cai , orthopedic surgeon, on 12/04. c. Doing well as of 12/21. 3. Coronary artery disease. a. History of several MIs. b. Status post stent in 2015. c. Asymptomatic. 4. Hypertension. 5. Hypothyroidism. 6. Osteoporosis. 7. Hypercholesterolemia. 8. Anemia. a. Secondary to blood loss from the fracture and surgical repair. b. Transfused 1 unit of packed RBCs on 12/03, which posttransfusion hemoglobin of 8.1. c. Hemoglobin up to 9.3 on 12/16. PLAN: Continue present care. We will arrange followup appointment with orthopedic surgeon, Dr. Cai. Anticipate discharge on Friday, 12/23. Job ID: [id number] [facility]
[2019-12-22] MEDS ORDERED: Ketorolac Tromethamine 30 MG/ML VIAL ONE (22:13)
[2019-12-22] MEDS ORDERED: Aspirin Chewable 81 MG TAB ONE (22:13)
[2019-12-23] MEDS: Levothyroxine Sodium 25 MCG TAB PO SCH (05:47)
[2019-12-23] MEDS: Acetaminophen 500 MG TAB PO SCH ×3 (05:47→21:00)
[2019-12-23] MEDS: Amlodipine 5 MG TAB PO SCH (08:05)
[2019-12-23] MEDS: Aspirin 81 mg Enteric Coated Tablet PO SCH (08:05)
[2019-12-23] MEDS: Clopidogrel Bisulfate 75 MG TAB PO SCH (08:06)
[2019-12-23] MEDS: traMADol HCl 50 MG TAB PO PRN ×3 (08:07→21:01)
[2019-12-23] MEDS: Famotidine 20 MG TAB PO SCH ×2 (08:07→21:01)
[2019-12-23] MEDS: Atorvastatin Calcium 10 MG TAB PO SCH (08:07)
[2019-12-23] MEDS: Carvedilol 3.125 MG TAB PO SCH ×2 (08:07→21:00)
[2019-12-23] MEDS: Ascorbic Acid 500 mg Chewable Tablet PO SCH ×2 (08:07→21:01)
[2019-12-23] MEDS ORDERED: Loratadine 10 MG TAB PO SCH (10:45)
--- NOTE | 2019-12-23 11:45 | PRG ---
DATE OF SERVICE: 12/23/2019 SUBJECTIVE: The patient said she has been doing good. She is making continual progress with her PT. The soreness in the hip is better. She still has to use a tramadol occasionally, usually takes one before her therapy and sometimes another part of the day. Arrangements have been made for her to see her orthopedic surgeon, Dr. Cai in the morning and anticipating discharge in the morning. OBJECTIVE: GENERAL: The patient is sitting up in a chair. She is alert, talkative, appears very comfortable. VITAL SIGNS: Show a temperature 97.8, pulse 72, respirations 16, O2 saturation 99% on room air, blood pressure 148/77. LUNGS: Clear. HEART: Regular rate. EXTREMITIES: Incisions are all healing over the right hip. There is no distal edema. ASSESSMENT: 1. Generalized weakness and deconditioning. a. Secondary to a fall on 12/03, that resulted in a fracture of the right hip , requiring surgical repair. b. Improving. Walking up to 275 feet, and up to 175 multiple times a day with a rolling walker, transferring just with supervision as of 12/22. 2. Fracture of the right hip and femur, displaced comminuted intertrochanteric and subtrochanteric fracture. a. Secondary to mechanical fall on 12/03. b. Status post open reduction and internal fixation with a long intermedullary braden and intertrochanteric nail and locking distal screw by Matias Cai, orthopedic surgeon on 12/04. c. Doing well as of 12/22. 3. Coronary artery disease. a. History of several myocardial infarctions. b. Status post stent in 2015. c. Asymptomatic. 4. Hypertension. 5. Hypothyroidism. 6. Osteoporosis. 7. Hypercholesterolemia. 8. Anemia. a. Secondary to blood loss from the fracture and surgical repair. b. Transfused 1 unit of packed RBCs on 12/03 with posttransfusion hemoglobin of 8.1. c. Hemoglobin up to 9.3 as of 12/16. PLAN: Continue PT, OT. Plan to discharge the patient in the morning and she will see her orthopedic surgeon later that morning. Job ID: [id number] MTDD
[2019-12-23 14:25] VITALS: BMI 19.7
[2019-12-24] MEDS: Acetaminophen 500 MG TAB PO SCH (05:18)
[2019-12-24] MEDS: Levothyroxine Sodium 25 MCG TAB PO SCH (05:19)
[2019-12-24] MEDS: Amlodipine 5 MG TAB PO SCH (08:33)
[2019-12-24] MEDS: Aspirin 81 mg Enteric Coated Tablet PO SCH (08:34)
[2019-12-24] MEDS: Ascorbic Acid 500 mg Chewable Tablet PO SCH (08:34)
[2019-12-24] MEDS: traMADol HCl 50 MG TAB PO PRN (08:35)
[2019-12-24] MEDS: Carvedilol 3.125 MG TAB PO SCH (08:35)
[2019-12-24] MEDS: Atorvastatin Calcium 10 MG TAB PO SCH (08:35)
[2019-12-24] MEDS: Famotidine 20 MG TAB PO SCH (08:35)
[2019-12-24] MEDS: Ibuprofen 200 MG TAB PO PRN (08:35)
[2019-12-24] MEDS: Clopidogrel Bisulfate 75 MG TAB PO SCH (08:43)
[2019-12-24 08:51] VITALS: BP 160/83; TEMP 98.6
[2019-12-24] MEDS ORDERED: Loratadine 10 MG TAB PO SCH (09:00)
--- NOTE | 2019-12-25 07:25 | DIS ---
DATE OF ADMISSION: 12/11/2019 DATE OF DISCHARGE: 12/24/2019 FINAL DIAGNOSES: 1. Generalized weakness and deconditioning. a. Secondary to a fall on 12/03 that resulted in a fracture of the right hip requiring surgical repair, improving, walking up to 275 feet and walking a little shorter distance several times a day with a rolling walker. Transferring with just supervision as of 12/23. 2. Fracture of the right hip and femur, displaced comminuted intertrochanteric and subtrochanteric fracture. a. Secondary to a fall on 12/03. b. Status post open reduction and internal fixation with long intramedullary braden and intertrochanteric nail and locking distal screw by Dr. Matias Cai, orthopedic surgeon, on 12/05/2019. She is doing well as of 12/23. 3. Coronary artery disease. a. History of several myocardial infarctions. b. Status post stent in 2015. c. Asymptomatic. 4. Hypertension. 5. Hypothyroidism. 6. Osteoporosis. 7. Hypercholesterolemia. 8. Anemia. a. Secondary to blood loss from the fracture and surgical repair. b. Transfused 1 unit of packed RBCs on 12/03 for a hemoglobin of 6.5. Post transfusion hemoglobin 8.1. c. Hemoglobin up to 9.3 as of 12/16. SUMMARY: The patient is a 74-year-old white female, who has a history of hypertension, coronary artery disease, hypercholesterolemia, and hypothyroidism. The patient was independent of all her ADLs and lives in [place] with her , Theron. The patient and her were helping a friend with remodeling. She was walking across a board and fell and had immediate pain and inability to walk. The pain was in the right hip. She was taken to the emergency room and admitted to [facility] on 12/04/2019 with a right displaced comminuted intertrochanteric and subtrochanteric fracture. She was taken to surgery on by orthopedic surgeon, Dr. Matias Cai, and underwent open reduction and internal fixation with a long intramedullary braden and intertrochanteric nail and locking distal screw. The patient did very well postop. She was transferred to [facility] for continued postop care and rehabilitation on 2019. Patient's hemoglobin on admission at [facility] on 12/03 was 12.1. Postop, this gradually dropped to 7.7 on 12/07. This was re-checked on 12/11, and it had dropped to 6.5. She was transfused 1 unit of blood and her post transfusion hemoglobin was 8.1. Repeat hemoglobin was 9.3 on 12/16. The anemia was from acute blood loss from the fracture of the right hip and femur and surgery. The patient's postop course was unremarkable. Her sutures were removed at 13 days postop. She initially had a little redness around the incision of the most proximal incision , but after removing the sutures and after few days, this was resolving. There was no drainage. The other two incisions were healing fine. The patient's lungs remain clear. The patient's heart had a regular rate. Her blood pressure was well controlled. She developed a little allergy symptoms with nasal congestion, for which she was placed on Claritin that she uses at home and helps. She was kept on her usual medicines that she takes for hypertension and coronary artery disease. She had no shortness of breath or chest pain during her admission. Physical Therapy and Occupational Therapy worked with her and she did excellent with both. By the time of her discharge, she was walking up to 275 feet and up to 150 feet several times a day with a rolling walker and just supervision. She was transferring with only supervision. By 12/23, her condition had improved such that it is felt that she could do fine at home with her as her primary caregiver. The patient was scheduled to see her orthopedic surgeon, Dr. Matias Cai, on the morning of 12/24/2019. The patient was discharged and she will go to his office from the hospital and then she plans on going home. Once home, she will need to see her physician and discuss with him treatment of the osteoporosis and also arrange for continuation of physical therapy. DISPOSITION: DIET: Regular diet, no added salt. ACTIVITIES: Ambulate with the use of a walker. The patient will need to continue physical therapy and she will need to see her physician to arrange either in- home therapy or outpatient PT. MEDICATIONS: Acetaminophen 500 mg two every 8 hours as needed, amlodipine 2.5 mg daily, ascorbic acid 500 mg b.i.d., aspirin 81 mg daily, atorvastatin 10 mg daily, carvedilol 3.125 mg b.i.d., clopidogrel that is Plavix 75 mg daily, famotidine 20 mg b.i.d., ibuprofen 200 mg three tablets every 8 hours as needed, levothyroxine 25 mcg daily, loratadine 10 mg daily as needed for congestion, Gladys lotion/ triamcinolone 15 ounces/200 mg apply to the skin daily p.r.n. itching, MiraLAX 17 g in 8 ounces water daily, tramadol 50 mg twice a day as needed. Caltrate D 600/200 1 bid. FOLLOWUP: The patient is due to see Dr. Matias Cai, her orthopedic surgeon, at 10:30 on 12/23. The patient should see her physician when she gets home to [place] in 1 to 2 weeks. CODE STATUS: Full code. Job ID: [id number] MTDD
== END 2019-12-24 08:55 | disposition home or self-care (01) | DRG 560 ==
LOC: MADMS 15:20
PROVIDERS: ADMIT Family Medicine; ATTEND Family Medicine
DX: S72.21XD Displaced subtrochanteric fracture of right femur, subsequent encounter for closed fracture with routine healing (principal); D62 Acute posthemorrhagic anemia; I25.2 Old myocardial infarction; I25.10 Atherosclerotic heart disease of native coronary artery without angina pectoris; I10 Essential (primary) hypertension; E03.9 Hypothyroidism, unspecified; M81.0 Age-related osteoporosis without current pathological fracture; E78.00 Pure hypercholesterolemia, unspecified; Z95.5 Presence of coronary angioplasty implant and graft; Z91.81 History of falling
CPT/HCPCS: 36415; 36430; 80048; 80053; 80061; 84443; 85025; 86850; 86900; 86901; J1885; J3301; P9016